=== PATIENT | female | born 1935 | race Caucasian/White ===

== ENCOUNTER 2018-02-28 09:15 | Outpatient (CLI) | payer MEDICARE | END 2018-02-28 09:16 | disposition home or self-care (01) | LOC: BICMAMMO 09:15 | PROVIDERS: ATTEND Obstetrics & Gynecology | DX: Z13.820 Encounter for screening for osteoporosis (principal); M85.80 Other specified disorders of bone density and structure, unspecified site; M81.0 Age-related osteoporosis without current pathological fracture | CPT/HCPCS: 77080 ==

== ENCOUNTER 2019-10-14 06:20 | Outpatient (CLI) | payer MEDICARE ==
[2019-10-14 10:49] LABS: Hemoglobin 13.8 g/dL (12.0-16.0); Mean Corpuscular HGB CONC 33.2 g/dL (32.0-36.0); Mean Corpuscular Hemoglobin 32.6 pg (27.0-31.0); Mean Corpuscular Volume 98.1 fL (78.0-98.0); Mean Platelet Volume 8.2 fL (7.4-10.4); Platelet Count 271 thou/uL (130-400); RBC Distribution Width 13.4 % (11.5-14.5); Red Blood Cell (RBC) Count 4.25 mill/uL (4.20-5.40); White Blood Cell (WBC) Count 7.3 thou/uL (4.8-10.8)
[2019-10-14 11:01] LABS: Bacteria/HPF 4+ HPF (None Seen); Bilirubin Negative (Negative); Blood, Urine Negative (Negative); Clarity Turbid (Clear); Glucose, Urine (Dipstick) Normal (Negative); Leukocyte 500 Leu/uL (Negative); Nitrite 2+ (Negative); Protein, Urine (Dipstick) Negative (Neg-Trace); Urobilinogen Normal mg/dL (Less than 2); WBC/HPF 21-50 HPF (0-3)
[2019-10-14 11:12] LABS: Anion Gap 11 mmol/L (10-20); BUN (Urea Nitrogen) 15 mg/dL (9.8-20.1); Calc. Creatinine Clearance 0 mL/min (70-130); Calcium 9.5 mg/dL (7.8-10.44); Carbon Dioxide 28 mmol/L (23-31); Chloride 104 mmol/L (98-107); Estimated GFR-MDRD 73; Glucose 83 mg/dL (83-110); Potassium 4.2 mmol/L (3.5-5.1); Sodium 139 mmol/L (136-145)
== END 2019-10-14 06:21 | disposition home or self-care (01) ==
LOC: LABBT 06:20
PROVIDERS: ATTEND Urology
DX: Z01.818 Encounter for other preprocedural examination (principal); R35.0 Frequency of micturition; N39.3 Stress incontinence (female) (male); N81.4 Uterovaginal prolapse, unspecified
CPT/HCPCS: 80048; 81001; 85027; 87077; 87086; 87186; 93005; 93010

== ENCOUNTER 2019-10-21 06:03 | Observation (INO) | payer MEDICARE ==
[2019-10-14 09:33] VITALS: BMI 26.3
[2019-10-21] MEDS ORDERED: Bupivacaine 0.25% HCL 30 ML VIAL ONE (07:07)
[2019-10-21] MEDS ORDERED: EPINEPHrine 1 MG/ML AMP ONE (07:07)
[2019-10-21] MEDS ORDERED: metroNIDAZOLE 500 MG/100 ML BAG ONE (07:17)
[2019-10-21] MEDS ORDERED: Fentanyl 100 MCG/2 ML VIAL ONE (08:28)
[2019-10-21] MEDS ORDERED: PHENYLEPHRINE-NS 100 MCG/ML 10 ML SYRINGE ONE (09:58)
[2019-10-21] MEDS ORDERED: Lidocaine 1% PF 5 ML VIAL ONE (09:58)
[2019-10-21] MEDS ORDERED: PROPOFOL 200 MG/20 ML VIAL ONE (09:58)
[2019-10-21] MEDS ORDERED: Ondansetron PF 4 MG/2 ML Vial ONE (09:58)
[2019-10-21] MEDS ORDERED: Dexamethasone 20 MG/5 ML VIAL ONE (09:58)
[2019-10-21] MEDS ORDERED: EPHEDRINE 25 MG/5 ML SYRINGE ONE (09:58)
[2019-10-21] MEDS ORDERED: HYDROcodone/Acetaminophen 5/325 mg Tablet PO PRN (10:21)
[2019-10-21] MEDS ORDERED: Ondansetron PF 4 MG/2 ML Vial IVP PRN (10:21)
[2019-10-21] MEDS ORDERED: diphenhydrAMINE 50 MG/ML VIAL IVP PRN (10:21)
[2019-10-21] MEDS ORDERED: Morphine 2 MG/ML SYRINGE SLOW IVP PRN (10:21)
[2019-10-21] MEDS ORDERED: Zolpidem Tartrate 5 MG TAB PO PRN (10:21)
[2019-10-21] MEDS ORDERED: Ketorolac Tromethamine 30 MG/ML VIAL IVP PRN (10:21)
[2019-10-21] MEDS ORDERED: hydrALAZINE 20 MG/ML VIAL SLOW IVP PRN (10:21)
[2019-10-21] MEDS ORDERED: Oxybutynin 5 MG TAB PO PRN (10:21)
[2019-10-21] MEDS ORDERED: Docusate 100 MG CAP PO SCH (10:30)
[2019-10-21] MEDS ORDERED: Famotidine/PF 20 mg/2ml Vial SLOW IVP SCH ×2 (10:30→21:00)
[2019-10-21] MEDS ORDERED: Ondansetron HCl/PF 4 MG/2 ML Vial IVP PRN (11:01)
[2019-10-21] MEDS: Sodium Chloride 0.9% 1,000 ML IV SCH ×2 (11:38→18:35)
[2019-10-21] MEDS ORDERED: Famotidine 20 MG TAB PO SCH (12:00)
--- NOTE | 2019-10-21 17:20 | OP ---
DATE OF PROCEDURE: 10/21/2019 PREOPERATIVE DIAGNOSES: Stress incontinence, midline cystocele. POSTOPERATIVE DIAGNOSES: Stress incontinence, midline cystocele. PROCEDURES PERFORMED: Placement of mid urethral sling, anterior vaginal repair. SPECIMEN: None. BLOOD LOSS: 150 mL. COMPLICATIONS: None. ANESTHESIA: General. DESCRIPTION OF PROCEDURE: After informed consent, the patient was taken to the operating room, transferred to the table under her own power. Anesthesia was established. A time-out was performed showing the correct patient, site, and procedure. Preoperative antibiotics were administered. She was prepped and draped in the lithotomy position. An 18fr catheter was placed. I began by injecting 0.25% Marcaine over the mid urethra and then directing this on either side of the urethra. The injection was then continued along the midline of the vagina infiltrating under the anterior vaginal mucosa. A midline incision was made from the mid urethra back towards the cervix. Metzenbaum scissors were then used to dissect the mucosa off her cystocele. The cut edges were held with a series of Allis clamps. Bladder was dissected away along the lateral edges using both blunt and sharp dissection exposing the vesicovaginal space. The [place] retractor was deployed during this dissection to assist. A series of 2-0 Vicryl interrupted sutures were then placed sequentially along the lateral folds of the vesicovaginal space, bringing together the lateral vaginal tissues. I then used the Metzenbaum scissors to dissect on either side of the urethra. I was not able to identify her previously placed sling. An 18-Thai catheter was used to drain the bladder in preparation for sling placement. A spot below the adductor longus tendon on both thighs was identified, and a small stab incision was made on both sides. The trocars for the transobturator sling were then passed from the stab incision into the vaginal incision through the obturator fossa. Care was taken to ensure that the trocars emerged at the level of the mid urethra. The sling was then affixed to the trocars, which were backed out bringing the arms of the sling through. This catheter was then removed, and cystoscopy was performed showing no evidence of the arms of the sling in the urethra or bladder using both 30- degree and 70-degree lenses. The bladder was then drained, and the catheter was replaced. The sling was then tensioned, and the arms were trimmed. The edges of the vaginal mucosa were trimmed and closed with a running 2-0 chromic suture. A vaginal packing was placed, and the stab incisions in her thighs were dressed with Dermabond. At this point, the procedure was completed. She was awoken from anesthesia, transferred back to her hospital bed, and taken to PACU in stable condition, where she will be admitted overnight. Job ID: [id number]
[2019-10-21] MEDS: Docusate 100 MG CAP PO SCH (20:46)
[2019-10-21] MEDS: Famotidine 20 MG TAB PO SCH (20:47)
[2019-10-22] MEDS: Sodium Chloride 0.9% 1,000 ML IV SCH (06:24)
[2019-10-22 08:10] VITALS: TEMP 97.8
[2019-10-22 08:34] VITALS: BP 107/63
[2019-10-22] MEDS: Docusate 100 MG CAP PO SCH (09:17)
[2019-10-22] MEDS: Famotidine 20 MG TAB PO SCH (09:17)
== END 2019-10-22 09:35 | disposition home or self-care (01) ==
LOC: SDC 06:03 → SURG A 07:48
PROVIDERS: ADMIT Urology; ATTEND Urology
PROC: 0TSD4ZZ Reposition Urethra, Percutaneous Endoscopic Approach (ICD-10-PCS; principal; 2019-10-21)
PROC: 0JQC0ZZ Repair Pelvic Region Subcutaneous Tissue and Fascia, Open Approach (ICD-10-PCS; 2019-10-21)
DX: N39.3 Stress incontinence (female) (male) (principal); N81.4 Uterovaginal prolapse, unspecified; R35.0 Frequency of micturition; K21.9 Gastro-esophageal reflux disease without esophagitis; F17.210 Nicotine dependence, cigarettes, uncomplicated
CPT/HCPCS: 51992; 57240; C1781; 96360; 96361; G0378; J0171; J0690; J1100; J2001; J2405; J2704; J3010; S0020